=== PATIENT | male | born 1965 | race Caucasian/White ===

== ENCOUNTER 2016-07-07 05:40 | Day surgery (SDC) | payer OTHER ==
[~2016-07-07] VITALS: Ht 172.7 cm; Wt 123.0 kg
[~2016-07-07 05:40] MED LIST: CINN500C14 PO; CYCL10TA9 PO; DIPH25CA6 PO; GLIM4TAB2 PO; IBUP200C PO; METF1000 PO; NAPR220C11 PO; PRAV40TA PO; TAMS0.4C98 PO; TEST200K IM
[2016-07-07] MEDS ORDERED: Ketamine 10 mg/mL 20 mL Inj ONE (05:41)
[2016-07-07] MEDS ORDERED: Lidocaine 0.5% 50 mL Inj ONE (05:41)
[2016-07-07 06:11] VITALS: BP 121/86; PULSE 91; RESP 16; O2SAT 94
[2016-07-07] MEDS: Lactated Ringer's 1,000 ML IV SCH ×2 (06:14→07:23)
[2016-07-07] MEDS ORDERED: Lactated Ringer's 500 ML IV PRN (07:16)
[2016-07-07] MEDS ORDERED: Lactated Ringer's 1,000 ML IV SCH (07:16)
[2016-07-07] MEDS ORDERED: HYDROmorphone 1 mg/mL Inj IVPUSH PRN (07:20)
[2016-07-07] MEDS ORDERED: fentaNYL-PF 50 mCg/mL 2 mL Inj IVPUSH PRN (07:20)
[2016-07-07] MEDS ORDERED: Phenylephrine 10,000 mCg/mL Inj IVPUSH PRN (07:20)
[2016-07-07] MEDS ORDERED: hydrALAZINE 20 mg/mL Inj IVPUSH PRN (07:20)
[2016-07-07] MEDS ORDERED: Dexamethasone 4 mg/mL Inj IVPUSH PRN (07:20)
[2016-07-07] MEDS ORDERED: EPHEDrine Sulfate 50 mg/mL Inj IVPUSH PRN (07:20)
[2016-07-07] MEDS ORDERED: Labetalol 5 mg/mL 4 mL Inj IV PRN (07:20)
[2016-07-07] MEDS ORDERED: Ondansetron 2 mg/mL 2 mL Inj IVPUSH PRN (07:20)
[2016-07-07] MEDS ORDERED: MetoCLOpramide 5 mg/mL 2 mL Inj IVPUSH PRN (07:20)
[2016-07-07] MEDS ORDERED: HYDROcodone-APAP 5-325 mg Tablet PO PRN (07:25)
[2016-07-07] MEDS ORDERED: Lidocaine 1%-Epi 1:100,000 20 mL Inj INFILTRATE ONE (07:33)
--- NOTE | 2016-07-07 07:41 | PCM.HPANE ---
Patient Data Date of Service: July 07, 2016 Surgeon Admitting Provider: Attending Provider:Houston Bello DO Primary Care Physician:Donna Khoury PA-C Other Provider:Jennifer Sexton Anesthesia Reason for Visit Right Carpal Tunnel Syndrome Ht/WT & BMI Height (Feet): 5 Height (Inches): 8 Weight (Kilograms): 123 Body Mass Index 41.00 Allergies Coded Allergies: Penicillins (Verified Allergy, Unknown, hives, 07/01/16) Past Anesthesia History Anesthesia History: Denies:: Abnormal Airway, Anesthesia Reactions, Difficult Intubation, Fam Anesthesia Reaction (mother- unsure of what reaction is) Diabetes History Hx Diabetes?: Yes Type of Diabetes: Type II Glycemic Control: Oral Medication Current Bedside Blood Glucose: 199 MRSA MRSA: No Medications Hypertension Medication: No Home Meds Incl Beta Alec: No Reported Medications Testosterone Cypionate (Testone Cik)200 Mg/Ml Rny298 Mg IM [id number] 07/01/16 Tamsulosin (Flomax)0.4 Mg Capsule0.4 Mg PO DAILY Ref 0 07/01/16 Pravastatin 40 Mg Ybaayq42 Mg PO DAILY Ref 0 07/01/16 Metformin (Glucophage)1,000 Mg Tablet1,000 Mg PO BID Ref 0 07/01/16 Ibuprofen 200 Mg Pbipcgo825 Mg PO QID PRN For Pain Ref 0 07/01/16 Glimepiride 4 Mg Tablet4 Mg PO BID #30 TABLET Ref 0 07/01/16 Cyclobenzaprine 10 Mg Mlodsy26 Mg PO TID PRN Spasm 07/01/16 diphenhydrAMINE HCl (Benadryl)25 Mg Ffrqgtb41 Mg PO HS PRN Ref 0 07/01/16 Naproxen Sodium (Aleve)220 Mg Bujkajm593 Mg PO Q12H PRN For Pain 07/01/16 Discontinued Reported Medications Cinnamon Bark (Cinnamon)500 Mg Ujaauwf655 Mg PO DAILY 07/01/16 History History of ENT Problems?: No HEENT History: Denies:: Abnormal Airway Cataracts (forming ) Difficult Intubation Dysphagia Glaucoma Hearing Problem Sinus Problem TMJ Denture Type: Full- Upper Full- Lower Teeth Condition: Within Normal Limits Hx of Heart Problems?: No Cardiovascular History: Positive for:: Peripheral Vascular (hx of right vein ablations) Denies:: AICD Abdominal Aortic Aneurism Atrial Fibrillation Cardiac Surgery Heart Murmur Hypertension Irregular Heartbeat Pacemaker Hx of Respiratory Problem?: Yes Respiratory History: Positive for:: Pneumonia (three times in past- post bronchitis not recent ) Denies:: Asthma COPD Emphysema Oxygen Administration Use of C-PAP Machine (sleep study - no CPAP recommended) Hx Neurologic Problems?: No Neurological History: Denies:: CVA Dizziness Headaches Multiple Sclerosis Parkinson's Disease Seizures TIA Hx of GI Problems?: No Hx of Problems?: No Genitourinary History: Denies:: Kidney Stones Urinary Tract Infection Male Hx: Denies:: Prostate Problems Scrotal Mass Testicular Surgery (hypogonad- takes testosterone IM) Skin History: Denies:: History Skin Disorders? Pressure Ulcers Hx Musculoskeletal Problems?: Yes Musculoskeletal History: Positive for:: Musculoskeletal Trauma (right carpal tunnel current admission problem) Denies:: Fibromyalgia Joint Replacement Osteoarthritis Systemic Lupus Hx of Psycho/Social Problems?: No Psycho Social History: Denies:: Anxiety Hx Depression Hx Surgeries?: Yes (appe, vein ablations) Hx Any Other Health Problems?: Yes Other History: Denies:: Cancer Thyroid Disease History Blood Transfusions: Positive for:: Accept Blood Products? Denies:: Blood Transfusions Hx Diabetes: YesBedside Blood Glucose: 199 Hx Alcohol Use: YesAlcoholic Drinks Per Day: 2 drinks monthlyHx Substance Use : NoHave You Smoked inLast 12 mo: No Stop/Bang S-Snoring: Do You Snore Loudly: No T-Tired: feel tired, fatigued: No O-Obsered: Observed not breath: No P-Blood Pressure: treated: No B- Body Mass Index > 35 kg/m2: Yes A- Age over 50: Yes N- Neck Large Circumference: Yes G- Gender Male: No MICHAEL Total Score: 3 MICHAEL Risk Assessment: Low Risk, <3 Yes Risk Assessment Category Category 1A: Patient has history of documented sleep apnea, and HAS NOT received any narcotic, sedative or anesthesia administration during this stay. Category 1B: Patient has history of documented sleep apnea, and HAS received any narcotic , sedative or anesthesia administration during this stay Category 2: Patient has SUSPECTED Obstructive Sleep Apnea, and HAS received any narcotic , sedative or anesthesia administration during this stay. Category 3: Patient has SUSPECTED Obstructive Sleep Apnea and HAS NOT received narcotic, sedative or anesthesia administration during this stay. Category 4: Outpatient in Procedural Areas with known sleep apnea or who screen positive for High Risk via the STOP/BANG questionnaire. Exam Exam Vital Signs Vital Signs Date Time Temp Pulse Resp B/P Pulse Ox O2 Delivery O2 Flow Rate FiO2 07/07/16 06:11 35.9 91 16 121/86 94 Room Air General Appearance: Alert, Oriented X3, Cooperative, No Acute Distress HEENT/AIRWAY: MP 3 Lungs: Clear to Auscultation, Normal Air Movement Heart: Exam Unremarkable, Regular Rate/Rhythm, No Murmurs/Rubs/Gallops Meds/Labs/Diagnostics Admission Meds Current Medications Lactated Ringer's (Lr) 1,000 ml @ 120 mls/hr Q8H20M IV Last administered on t 06:14; Start 07/07/16 at 05:00; Stop 07/07/16 at 13:19 Bedside Blood Glucose: 199 Plan Impression Patient chart reviewed, patient interviewed and anesthestic plan with risks, benefits, and alternatives discussed, and informed consent obtained. NPO per Anesth. Guidelines: Yes ASA Physical Status: ASA2 Mod Systemic Disease Anesthetic Plan: Regional Block Bene/Risks/Altern/Consents: Yes HP Complete Prior to Induction: Yes Dae Leung MD July 07, 2016 07:41
[2016-07-07 08:00] VITALS: BP 118/66; PULSE 85; RESP 16; O2SAT 94
--- NOTE | 2016-07-07 13:41 | PCM.ANEP1 ---
Post Anesthesia Phase 1 PACU Phase 1 Assessment Date of Service: July 07, 2016 Vital Signs Vital Signs Date Time Temp Pulse Resp B/P Pulse Ox O2 Delivery O2 Flow Rate FiO2 07/07/16 08:00 36.6 85 16 118/66 94 Room Air 07/07/16 06:11 35.9 91 16 121/86 94 Room Air Level of Alertness: Awake, talking Pain: No Nausea or Vomiting: No Oxygen Delivery: Room Air Lungs: Clear to Auscultation, Normal Air Movement Complications: No Dae Leung MD July 07, 2016 13:41
--- NOTE | 2016-07-08 15:13 | OP ---
[address] [address] OPERATIVE REPORT PATIENT: AKASH KENNEDY : 1965 MR#: [id number] ADMIT: 07/07/2016 JOB ID: [id number] DATE OF SURGERY: 07/07/2016 PREOPERATIVE DIAGNOSIS(ES): Right carpal tunnel syndrome. POSTOPERATIVE DIAGNOSIS(ES): Right carpal tunnel syndrome. PROCEDURE: Right open carpal tunnel release. SURGEON: Houston Bello DO ANESTHESIA: [place] block. BRIEF HISTORY: The patient is a pleasant, 50-year-old male with longstanding history of bilateral hand pain and paresthesias. He had failed conservative treatment with nighttime bracing, and presented with electrodiagnostic findings of bilateral carpal tunnel syndrome. With failure of conservative treatment, discussed with the patient, the risks, benefits, and indications to proceed with a right open carpal tunnel release. He understood the risks include, but not limited to, neurovascular injury, tendon injury, infection, failure to resolve the patient's preoperative symptoms, stiffness, persistent pain, all which may require further intervention. The patient had all questions answered. Consent was signed and placed in the chart. PROCEDURE IN DETAIL: The patient was brought to the operative suite and placed supine on the operating room table. Surgical time-out performed. Everyone in the room was in agreement. After appropriate anesthesia was obtained, right arm was then prepped and draped in a sterile fashion. A 2 cm longitudinal incision was made in line with the radial aspect of the ring finger, the ulnar aspect of the palmaris longus. The incision was kept distal to the wrist crease and proximal to Hough's cardinal lines. Subcutaneous tissues were dissected with bipolar electrocautery utilized to maintain hemostasis throughout the procedure. The palmar fascia was first identified and incised longitudinally in line with the skin incision followed by exposure of the underlying transverse carpal ligament. Transverse carpal ligament was then released in its entirety to include the distal extent of the antebrachial fascia. Copious irrigation was then performed followed by closure of the skin with 5-0 nylon in a simple interrupted fashion. ESTIMATED BLOOD LOSS: Less than 1 cc. COMPLICATIONS: None. DISPOSITION: The patient tolerated the procedure well. Anesthesia was reversed. The patient was transferred to PACU for recovery. POSTOPERATIVE PLAN: The patient will follow up in office in two weeks. We will remove the patient's sutures at that time and have him start working on range of motion and scar mobilization. If he is doing well in regards to the right hand, we will discuss proceeding with surgery for the left.
[2016-07-15] MEDS ORDERED: CINN500C14 PO (14:40)
== END 2016-07-07 23:59 | disposition home or self-care (01) ==
LOC: SAS 05:40
PROVIDERS: ATTEND Orthopaedic Surgery
DX: G56.01 Carpal tunnel syndrome, right upper limb (principal); E11.9 Type 2 diabetes mellitus without complications; E78.5 Hyperlipidemia, unspecified; D35.2 Benign neoplasm of pituitary gland; N40.0 Benign prostatic hyperplasia without lower urinary tract symptoms; M19.90 Unspecified osteoarthritis, unspecified site; E66.3 Overweight; Z79.84 Long term (current) use of oral hypoglycemic drugs; Z87.891 Personal history of nicotine dependence; Z68.39 Body mass index [BMI] 39.0-39.9, adult
CPT/HCPCS: 64721; J2250; J7120

== ENCOUNTER 2016-07-21 05:47 | Day surgery (SDC) | payer OTHER ==
[~2016-07-21] VITALS: Ht 175.3 cm; Wt 122.7 kg
[2016-07-21] MEDS ORDERED: Propofol 10,000 mCg/mL 20 mL Inj ONE (05:48)
[2016-07-21] MEDS: Lactated Ringer's 1,000 ML IV SCH ×2 (06:13→07:15)
[2016-07-21 06:20] VITALS: BP 127/74; PULSE 90; RESP 18; O2SAT 95
[2016-07-21] MEDS ORDERED: HYDROcodone-APAP 5-325 mg Tablet PO PRN (07:20)
[2016-07-21] MEDS ORDERED: Atropine 0.4 mg/mL Inj IVPUSH PRN (07:25)
[2016-07-21] MEDS ORDERED: EPHEDrine Sulfate 50 mg/mL Inj IVPUSH PRN (07:25)
[2016-07-21] MEDS ORDERED: Lactated Ringer's 500 ML IV PRN (07:25)
[2016-07-21] MEDS ORDERED: Ondansetron 2 mg/mL 2 mL Inj IVPUSH PRN (07:25)
[2016-07-21] MEDS ORDERED: Phenylephrine 10,000 mCg/mL Inj IVPUSH PRN (07:25)
[2016-07-21] MEDS ORDERED: fentaNYL-PF 50 mCg/mL 2 mL Inj IVPUSH PRN (07:25)
[2016-07-21] MEDS ORDERED: Labetalol 5 mg/mL 4 mL Inj IV PRN (07:25)
[2016-07-21] MEDS ORDERED: Lactated Ringer's 1,000 ML IV SCH (07:25)
[2016-07-21] MEDS ORDERED: Lidocaine 1%-Epi 1:100,000 20 mL Inj INJ ONE (07:31)
[2016-07-21 07:55] VITALS: BP 114/68; PULSE 95; RESP 18; O2SAT 95
--- NOTE | 2016-07-21 08:11 | OP ---
[address] [address] OPERATIVE REPORT PATIENT: AKASH KENNEDY : 1965 MR#: [id number] ADMIT: 07/21/2016 JOB ID: [id number] DATE OF SURGERY: 07/21/2016 PREOPERATIVE DIAGNOSIS(ES): Left carpal tunnel syndrome. POSTOPERATIVE DIAGNOSIS(ES): Left carpal tunnel syndrome. PROCEDURE: Left open carpal tunnel release. SURGEON: Houston Bello DO. ANESTHESIA: [place] block. BRIEF HISTORY: The patient is a pleasant 50-year-old male with a longstanding history of bilateral hand pain and paresthesias. He failed conservative treatment with nighttime bracing and demonstrated electrodiagnostic findings for bilateral carpal tunnel syndrome. He underwent a right open carpal tunnel release 2 weeks ago and did extremely well, but continued to have symptoms in regards to the left hand despite nighttime bracing. He wants to get the surgery done as close together as possible as he would like to get back to work and limit how much time he had to take off. As he was doing so well on the right I discussed with him proceeding with surgery for his left hip for left open carpal tunnel release. He understood the risks, benefits, and alternatives as he has already had the surgery performed on the right side. PROCEDURE IN DETAIL: The patient was brought to the operative suite and placed supine on the operating table. Surgical time-out performed, everyone in the room was in agreement. After appropriate anesthesia was obtained, left hand was then prepped and draped in sterile fashion. A 2-cm longitudinal incision was made in line with the radial aspect of ring finger and ulnar aspect of the palmaris longus. The incision was kept distal to the wrist crease and proximal to Hough's cardinal lines. Subcutaneous tissues were dissected with bipolar electrocautery utilized to maintain hemostasis throughout the procedure. The palmar fascia was next identified and incised longitudinally in line with the skin incision followed by exposure of the underlying transverse carpal ligament. Transverse carpal ligament was then released in its entirety to include the distal extent of the antebrachial fascia. Copious irrigation was performed followed by closure of skin with 5-0 nylon in simple interrupted fashion. The patient was then placed into a bulky soft dressing. ESTIMATED BLOOD LOSS: Less than 1 cc. COMPLICATIONS: None. DISPOSITION: The patient tolerated the procedure well. Anesthesia was reversed. The patient was transferred back to PACU for recovery. POSTOPERATIVE PLAN: The patient will follow up in the office in 2 weeks. We will remove the patient's sutures at that time and have him start working on range of motion and scar mobilization.
[2016-07-21 08:13] VITALS: BP 125/70; PULSE 90; RESP 15; O2SAT 96
--- NOTE | 2016-07-21 17:39 | PCM.HPANE ---
Patient Data Surgeon Admitting Provider: Attending Provider:Houston Bello DO Primary Care Physician:Donna Khoury PA-C Other Provider:Jennifer Sexton Anesthesia Reason for Visit Left Carpal Tunnel Syndrome Ht/WT & BMI Height (Feet): 5 Height (Inches): 9 Weight (Kilograms): 122.7 Body Mass Index 40.00 Allergies Coded Allergies: Penicillins (Verified Allergy, Severe, hives, 07/15/16) Past Anesthesia History Anesthesia History: Denies:: Abnormal Airway, Anesthesia Reactions, Difficult Intubation, Fam Anesthesia Reaction (mother- unsure of what reaction is), Malignant Hyperthermia Diabetes History Hx Diabetes?: Yes Type of Diabetes: Type II Glycemic Control: Oral Medication Current Bedside Blood Glucose: 156 MRSA MRSA: No Medications Home Meds Incl Beta Alec: No Reported Medications Testosterone Cypionate (Testone Cik)200 Mg/Ml Xeb475 Mg IM [id number] 07/01/16 Tamsulosin (Flomax)0.4 Mg Capsule0.4 Mg PO DAILY Ref 0 07/01/16 Pravastatin 40 Mg Thpwal67 Mg PO DAILY Ref 0 07/01/16 Metformin (Glucophage)1,000 Mg Tablet1,000 Mg PO BID Ref 0 07/01/16 Ibuprofen 200 Mg Ortyeoj125 Mg PO QID PRN For Pain Ref 0 07/01/16 Glimepiride 4 Mg Tablet4 Mg PO BID #30 TABLET Ref 0 07/01/16 Cyclobenzaprine 10 Mg Aagpae04 Mg PO TID PRN Spasm 07/01/16 diphenhydrAMINE HCl (Benadryl)25 Mg Kbbddte96 Mg PO HS PRN Ref 0 07/01/16 Naproxen Sodium (Aleve)220 Mg Uzeovbl608 Mg PO Q12H PRN For Pain 07/01/16 Discontinued Reported Medications Cinnamon Bark (Cinnamon)500 Mg Uxlqend967 Mg PO DAILY 07/15/16 History History of ENT Problems?: Yes HEENT History: Denies:: Abnormal Airway Cataracts (forming ) Difficult Intubation Dysphagia Glaucoma Hearing Problem Sinus Problem TMJ Denture Type: Full- Upper Full- Lower Teeth Condition: Within Normal Limits Hx of Heart Problems?: No Cardiovascular History: Positive for:: Peripheral Vascular (S/P RT RFA'S FOR VARICOSITIES X2) Denies:: AICD Abdominal Aortic Aneurism Atrial Fibrillation Cardiac Surgery Chest Pain Congestive Heart Failure Coronary Artery Disease Edema Heart Murmur Hypertension (HYPERLIPIDEMIA) Irregular Heartbeat Pacemaker Rheumatic Fever Thrombophlebitis Valvular Heart Disease Hx of Respiratory Problem?: Yes Respiratory History: Positive for:: Pneumonia (HX OF X3 REMOTE BRONCHITIS) Denies:: Asthma COPD Emphysema Oxygen Administration Use of C-PAP Machine (sleep study - no CPAP recommended) Hx Neurologic Problems?: No Neurological History: Denies:: Alzheimer's Disease CVA Dementia Dizziness Headaches Multiple Sclerosis Parkinson's Disease Peripheral Neuropathy Seizures TIA Hx of GI Problems?: Yes Gastrointestinal History: Denies:: Cirrhosis Diverticulitis Gall Bladder Disease Gastroesphageal Reflux Gastrointestinal Bleeding Heartburn Hepatitis Hiatal Hernia Liver Disease Rectal Bleeding Other GI Pertinent History: S/P APPY Hx of Problems?: No Genitourinary History: Denies:: HX of Hemodialysis Kidney Stones Urinary Tract Infection Male Hx: Positive for:: Prostate Problems (BPH) Denies:: Scrotal Mass Testicular Surgery (hypogonad- takes testosterone IM) Skin History: Denies:: History Skin Disorders? 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 Blood Transfuse Reaction Blood Transfusions Hx Diabetes: YesBedside Blood Glucose: 156 Hx Alcohol Use: YesAlcoholic Drinks Per Day: 2/MONTHHx Substance Use: No Smoking Status: Former Smoker Have You Smoked inLast 12 mo: No Stop/Bang S-Snoring: Do You Snore Loudly: No T-Tired: feel tired, fatigued: No O-Obsered: Observed not breath: No P-Blood Pressure: treated: No B- Body Mass Index > 35 kg/m2: Yes A- Age over 50: No N- Neck Large Circumference: Yes G- Gender Male: Yes MICHAEL Total Score: 3 Risk Assessment Category Category 1A: Patient has history of documented sleep apnea, and HAS NOT received any narcotic, sedative or anesthesia administration during this stay. Category 1B: Patient has history of documented sleep apnea, and HAS received any narcotic , sedative or anesthesia administration during this stay Category 2: Patient has SUSPECTED Obstructive Sleep Apnea, and HAS received any narcotic , sedative or anesthesia administration during this stay. Category 3: Patient has SUSPECTED Obstructive Sleep Apnea and HAS NOT received narcotic, sedative or anesthesia administration during this stay. Category 4: Outpatient in Procedural Areas with known sleep apnea or who screen positive for High Risk via the STOP/BANG questionnaire. Exam Exam Vital Signs Vital Signs Date Time Temp Pulse Resp B/P Pulse Ox O2 Delivery O2 Flow Rate FiO2 07/21/16 06:20 36.1 90 18 127/74 95 Room Air General Appearance: Alert, Oriented X3, Cooperative, No Acute Distress HEENT/AIRWAY: MP 2, Neck Movement (FROM), Mouth Opening (3 FBMO) Lungs: Normal Air Movement Heart: Regular Rate/Rhythm Meds/Labs/Diagnostics Admission Meds Current Medications Lactated Ringer's (Lr) 1,000 ml @ 120 mls/hr Q8H20M IV Last administered on t 06:13; Start 07/21/16 at 05:00; Stop 07/21/16 at 13:19 Bedside Blood Glucose: 156 Plan Impression Patient chart reviewed, patient interviewed and anesthestic plan with risks, benefits, and alternatives discussed, and informed consent obtained. NPO per Anesth. Guidelines: Yes ASA Physical Status: ASA2 Mod Systemic Disease Anesthetic Plan: GA Bene/Risks/Altern/Consents: Yes HP Complete Prior to Induction: Yes Nick Guillaume MD July 21, 2016 07:13
--- NOTE | 2016-07-21 17:39 | PCM.ANEP1 ---
Post Anesthesia PACU Phase 1 Assessment Anesthetic Administered: Regional Block Level of Alertness: Awake, talking GARCÍA's with Equal Strength: Yes Pain: No Nausea or Vomiting: No CV Function & Hydration Stable: No Airway Device: Oxygen Delivery: Room Air Lungs: Normal Air Movement Dermatome Level: Full Sensation PACU Phase 2 Assessment Complications: No Follow up Care: N/A Patient Instructions Provided: N/A Nick Guillaume MD July 21, 2016 17:39
== END 2016-07-21 23:59 | disposition home or self-care (01) ==
LOC: SAS 05:47
PROVIDERS: ATTEND Orthopaedic Surgery
DX: G56.02 Carpal tunnel syndrome, left upper limb (principal); E78.5 Hyperlipidemia, unspecified; E11.9 Type 2 diabetes mellitus without complications; M19.90 Unspecified osteoarthritis, unspecified site; D35.2 Benign neoplasm of pituitary gland; N40.0 Benign prostatic hyperplasia without lower urinary tract symptoms; E66.01 Morbid (severe) obesity due to excess calories; Z79.84 Long term (current) use of oral hypoglycemic drugs; Z68.39 Body mass index [BMI] 39.0-39.9, adult; Z87.891 Personal history of nicotine dependence
CPT/HCPCS: 64721; J7120